=== PATIENT | female | born 1965 | race Caucasian/White ===

== ENCOUNTER 2017-11-06 13:26 | Emergency (ER) | payer OTHER ==
[2017-11-06 13:27] VITALS: BMI 31.5
[2017-11-06] MEDS ORDERED: Sodium Chloride 0.9% 1,000 ML IV STA (14:01)
--- NOTE | 2017-11-06 14:15 | ED PDOC ---
HPI: General Adult Time Seen by Provider: 11/06/17 13:36 Chief Complaint (Nursing): Flu-like Symptoms Chief Complaint (Provider): Flu-Like Symptoms History Per: Patient History/Exam Limitations: no limitations Onset/Duration Of Symptoms: Hrs (since last night) Current Symptoms Are (Timing): Still Present Additional Complaint(s): 51 year old female presents to ED with complaints of flu-like symptoms since last night and has a past medical history of asthma, diabetes mellitus, HTN, COPD, and hypothyroidism. (+) cough, congestion, fever, and body aches. Notes taking Theraflu with minimal relief. PCP: Reinaldo Rodas Past Medical History Reviewed: Historical Data, Nursing Documentation, Vital Signs Vital Signs: Last Vital Signs Temp 100 F H 11/06/17 14:35 Pulse 82 11/06/17 15:23 Resp 16 11/06/17 13:31 BP 147/89 11/06/17 13:31 Pulse Ox 100 11/06/17 15:23 - Medical History PMH: Anxiety, Asthma, Colonic Polyps, COPD (USES MAC), Gastritis, HTN, Hypercholesterolemia, Hypothyroidism, Sleep Apnea (USES MAC) Denies: Fractures, Chronic Kidney Disease, Seizures, TIA - Surgical History Surgical History: Appendectomy, Cholecystectomy, Endoscopy, Tonsillectomy - Family History Family History: States: Unknown Family Hx - Living Arrangements Living Arrangements: With Family - Home Medications Home Medications: Ambulatory Orders Medication Instructions Recorded Levothyroxine [Synthroid] 150 mcg PO DAILY 03/29/15 amLODIPine [Norvasc] 10 mg PO DAILY 03/29/15 Albuterol/Ipratropium [Combivent 2 inh PO BID 04/05/16 Respimat] Alprazolam 0.25 mg PO BID PRN 04/05/16 Cholecalciferol (Vitamin D3) 50,000 unit PO QWK 04/05/16 [Vitamin D3] Losartan Potassium 25 mg PO DAILY 04/05/16 Omeprazole 20 mg PO DAILY 04/05/16 Aspirin [Ecotrin] 81 mg PO DAILY #30 tablet. 01/20/17 Atorvastatin [Lipitor] 10 mg PO HS 08/29/17 Calcium Carbonate/Vitamin D3 1 tab PO BID 08/29/17 [Oysco 500-Vit D3 200 Tablet] Fluticasone Nasal [Flonase] 1 spry INH DAILY PRN 08/29/17 Fluticasone/Vilanterol [Breo 1 puff INH DAILY 08/29/17 Ellipta 100-25 Mcg INH] Mesalamine [Apriso] 0.375 gm PO DAILY 08/29/17 Benzonatate [Tessalon Perle] 100 mg PO Q8 PRN #30 capsule 11/06/17 Oseltamivir [Tamiflu] 75 mg PO BID #10 cap 11/06/17 - Allergies Allergies/Adverse Reactions: Allergies Allergy/AdvReac Type Severity Reaction Status Date / Time No Known Allergies Allergy Verified 08/29/17 11:02 Review of Systems ROS Statement: Except As Marked, All Systems Reviewed And Found Negative Constitutional: Positive for: Fever, Other ((+) body aches) ENT: Positive for: Nose Congestion Cardiovascular: Negative for: Chest Pain Respiratory: Positive for: Cough. Negative for: Shortness of Breath, Hemoptysis Gastrointestinal: Negative for: Nausea, Vomiting, Abdominal Pain Physical Exam - Reviewed Nursing Documentation Reviewed: Yes Vital Signs Reviewed: Yes - Physical Exam Appears: Positive for: Non-toxic, No Acute Distress Skin: Positive for: Normal Color, Warm, Dry Eye Exam: Positive for: Normal appearance, EOMI, PERRL ENT: Positive for: Normal ENT Inspection Neck: Positive for: Normal, Painless ROM, Supple Cardiovascular/Chest: Positive for: Regular Rate, Rhythm. Negative for: Murmur Respiratory: Positive for: Normal Breath Sounds. Negative for: Respiratory Distress Gastrointestinal/Abdominal: Positive for: Soft. Negative for: Tenderness Neurologic/Psych: Positive for: Alert, Oriented. Negative for: Motor/Sensory Deficits - Laboratory Results Result Diagrams: 11/06/17 14:30 11/06/17 14:30 - ECG ECG: Positive for: Interpreted By Me ECG Rhythm: Positive for: Sinus Rhythm. Negative for: ST/T Changes Rate: 82 O2 Sat by Pulse Oximetry: 100 (RA) Pulse Ox Interpretation: Normal - Radiology X-Ray: Interpreted by Me (CXR) X-Ray Interpretation: No Acute Disease Medical Decision Making Medical Decision Makin Initial impression: flu-like illness Initial plan: * VBG * Labs * CXR * NS IV * Acetaminophen 975mg PO * Zofran Inj 4mg IVP * BCx * Urine C&S * Re-eval Scribe Attestation: Documented by Ophelia Ballard, acting as a scribe for Jere Velasquez PA-C. Provider Scribe Attestation: All medical record entries made by the Scribe were at my direction and personally dictated by me. I have reviewed the chart and agree that the record accurately reflects my personal performance of the history, physical exam, medical decision making, and the department course for this patient. I have also personally directed, reviewed, and agree with the discharge instructions and disposition. Disposition - Clinical Impression Clinical Impression: Influenza-like symptoms - Patient ED Disposition Is Patient to be Admitted: No - Disposition Disposition: Routine/Home Disposition Time: 15:20 Condition: IMPROVED Prescriptions: Benzonatate [Tessalon Perle] 100 mg PO Q8 PRN #30 capsule PRN Reason: Cough Oseltamivir [Tamiflu] 75 mg PO BID #10 cap Instructions: Influenza (ED) Forms: [facility] (Setswana) Print Language: DIVEHI
[2017-11-06 15:01] LABS: BASO % 0.6 % (0.0-2.0); EOS % 0.4 % (0.0-4.0); HEMOGLOBIN 14.3 g/dL (12.0-16.0); LYMPH # 1.1 K/uL (1.0-4.3); LYMPH % 18.3 % (20.0-40.0); MEAN CELL VOLUME 86.5 fl (81.0-99.0); MEAN CORPUSCULAR HEMOGLOBIN 28.7 pg (27.0-31.0); MEAN CORPUSCULAR HGB CONC 33.2 g/dL (33.0-37.0); MEAN PLATELET VOLUME 8.8 fl (7.2-11.7); MONO # 0.6 K/uL (0.0-0.8); MONO % 9.5 % (0.0-10.0); NEUT # 4.2 K/uL (1.8-7.0); NEUT % 71.2 % (50.0-75.0); NRBC % 0.2 % (0.0-0.0); RED CELL DISTRIBUTION WIDTH 14.9 % (11.5-14.5); WHITE BLOOD COUNT 5.9 K/uL (4.8-10.8)
[2017-11-06 15:01] LABS: VENOUS BLOOD GAS BASE EXCESS 2.2 mmol/L (0.0-2.0); VENOUS BLOOD GAS PCO2 49 mmHg (40-60); VENOUS BLOOD GAS PO2 15 mm/Hg (30-55); VENOUS BLOOD PH 7.37 (7.32-7.43)
[2017-11-06 15:12] LABS: ALB/GLOB RATIO 1.3 (1.0-2.1); ALBUMIN 4.5 g/dL (3.5-5.0); ALT/SGPT 40 U/L (9-52); AST/SGOT 28 U/L (14-36); BLOOD UREA NITROGEN 13 mg/dl (7-17); CALCIUM 9.4 mg/dL (8.4-10.2); GFR AFRICAN-AMERICAN > 60; GFR NON-AFRICAN AMERICAN 52; SQUAMOUS EPITHIAL 12 /hpf (0-5); URINE BACTERIA RARE (<OCC); URINE BILIRUBIN NEGATIVE (NEGATIVE); URINE BLOOD SMALL (NEGATIVE); URINE CLARITY CLOUDY (Clear); URINE COLOR YELLOW (YELLOW); URINE GLUCOSE (UA) NEG (Normal); URINE LEUKOCYTE ESTERASE NEG Leu/uL (Negative); URINE NITRATE NEGATIVE (NEGATIVE); URINE PROTEIN 30 mg/dL (NEGATIVE); URINE UROBILINOGEN 0.2-1.0 mg/dL (0.2-1.0)
--- NOTE | 2017-11-06 15:34 | RAD ---
HISTORY: Cough COMPARISON: Comparison chest 03/18/2015 TECHNIQUE: Chest PA and lateral FINDINGS: LUNGS: Mild bibasilar atelectasis left greater than right. Developing left lower lobe infiltrate could be excluded followup radiographs. PLEURA: No significant pleural effusion identified. No pneumothorax apparent. CARDIOVASCULAR: Normal. OSSEOUS STRUCTURES: Mild multilevel degenerative spondylosis of the thoracic spine chronic anterior wedge deformities of few mid thoracic segments VISUALIZED UPPER ABDOMEN: Metallic clips right upper quadrant of the abdomen consistent with prior cholecystectomy. OTHER FINDINGS: None. IMPRESSION: Mild bibasilar atelectasis left greater than right. Developing left lower lobe infiltrate could be excluded followup radiographs.
[2017-11-06 16:05] VITALS: BP 117/66; PULSE 90; RESP 18; TEMP 99.1; O2SAT 95
--- NOTE | 2017-11-07 12:49 | CARD ---
APPROVED REPORT EKG Measurement Heart [id number] <Conclusion> Normal sinus rhythm Possible Left atrial enlargement Left axis deviation T wave abnormality, consider anterior ischemia Abnormal ECG
== END 2017-11-06 16:13 | disposition home or self-care (01) ==
LOC: H.ER 13:26
DX: J11.1 Influenza due to unidentified influenza virus with other respiratory manifestations (principal); E11.9 Type 2 diabetes mellitus without complications; I10 Essential (primary) hypertension; J44.9 Chronic obstructive pulmonary disease, unspecified; Z79.82 Long term (current) use of aspirin; E03.9 Hypothyroidism, unspecified; E78.00 Pure hypercholesterolemia, unspecified
CPT/HCPCS: 71046; 80053; 81003; 82803; 82948; 85025; 87040; 87086; 87804; 93005; 96361; 96374; 99282; J2405; J7040

== ENCOUNTER 2018-03-05 12:34 | Observation (INO) | payer OTHER ==
[2018-03-05 12:35] VITALS: BMI 31.5
[2018-03-05] MEDS ORDERED: Sodium Chloride 0.9% 1,000 ML IV STA (12:56)
--- NOTE | 2018-03-05 13:01 | ED PDOC ---
HPI: Abdomen Time Seen by Provider: 03/05/18 12:49 Chief Complaint (Nursing): Abdominal Pain Chief Complaint (Provider): Abdominal Pain History Per: Patient History/Exam Limitations: no limitations Onset/Duration Of Symptoms: Days (x2) Current Symptoms Are (Timing): Still Present Additional Complaint(s): 52 y/o female with a pmhx of colitis, HTN, thyroid disease, and hypercholesterolemia, who presents to the ED for evaluation of diffuse abdominal pain associated with nausea, diarrhea, and chills x2 days. Patient denies vomiting, fever, and hematochezia. PMD: Reinaldo Rodas Past Medical History Reviewed: Historical Data, Nursing Documentation, Vital Signs Vital Signs: Last Vital Signs Temp 98.7 F 03/05/18 12:45 Pulse 83 03/05/18 12:45 Resp 20 03/05/18 12:45 BP 128/92 H 03/05/18 12:45 Pulse Ox 99 03/05/18 13:04 - Medical History PMH: Anxiety, Asthma, Colonic Polyps, COPD (USES MAC), Gastritis, HTN, Hypercholesterolemia, Hypothyroidism, Sleep Apnea (USES MAC) Denies: Fractures, Chronic Kidney Disease, Seizures, TIA - Surgical History Surgical History: Appendectomy, Cholecystectomy, Endoscopy, Tonsillectomy - Family History Family History: States: Unknown Family Hx - Home Medications Home Medications: Ambulatory Orders Medication Instructions Recorded Levothyroxine [Synthroid] 150 mcg PO DAILY 03/29/15 amLODIPine [Norvasc] 10 mg PO DAILY 03/29/15 Albuterol/Ipratropium [Combivent 2 inh PO BID 04/05/16 Respimat] Alprazolam 0.25 mg PO BID PRN 04/05/16 Cholecalciferol (Vitamin D3) 50,000 unit PO QWK 04/05/16 [Vitamin D3] Losartan Potassium 25 mg PO DAILY 04/05/16 Omeprazole 20 mg PO DAILY 04/05/16 Aspirin [Ecotrin] 81 mg PO DAILY #30 tablet. 01/20/17 Atorvastatin [Lipitor] 10 mg PO HS 08/29/17 Calcium Carbonate/Vitamin D3 1 tab PO BID 08/29/17 [Oysco 500-Vit D3 200 Tablet] Fluticasone Nasal [Flonase] 1 spry INH DAILY PRN 08/29/17 Fluticasone/Vilanterol [Breo 1 puff INH DAILY 08/29/17 Ellipta 100-25 Mcg INH] Mesalamine [Apriso] 0.375 gm PO DAILY 08/29/17 Benzonatate [Tessalon Perle] 100 mg PO Q8 PRN #30 capsule 11/06/17 Oseltamivir [Tamiflu] 75 mg PO BID #10 cap 11/06/17 - Allergies Allergies/Adverse Reactions: Allergies Allergy/AdvReac Type Severity Reaction Status Date / Time No Known Allergies Allergy Verified 03/05/18 12:45 Review of Systems ROS Statement: Except As Marked, All Systems Reviewed And Found Negative Constitutional: Positive for: Chills. Negative for: Fever Gastrointestinal: Positive for: Nausea, Abdominal Pain, Diarrhea. Negative for : Vomiting, Hematochezia Physical Exam - Reviewed Nursing Documentation Reviewed: Yes Vital Signs Reviewed: Yes - Physical Exam Appears: Positive for: Non-toxic, No Acute Distress Head Exam: Positive for: ATRAUMATIC, NORMAL INSPECTION, NORMOCEPHALIC Skin: Positive for: Normal Color, Warm, Dry. Negative for: Rash Eye Exam: Positive for: EOMI, Normal appearance, PERRL ENT: Negative for: Normal ENT Inspection (mucous membranes dry) Neck: Positive for: Normal, Painless ROM Cardiovascular/Chest: Positive for: Regular Rate, Rhythm. Negative for: Murmur Respiratory: Positive for: Normal Breath Sounds. Negative for: Respiratory Distress Gastrointestinal/Abdominal: Positive for: Tenderness (RUQ, RLQ). Negative for: Guarding, Rebound Back: Positive for: Normal Inspection. Negative for: L CVA Tenderness, R CVA Tenderness, Vertebral Tenderness Extremity: Positive for: Normal ROM. Negative for: Pedal Edema, Deformity Neurologic/Psych: Positive for: Alert, Oriented. Negative for: Motor/Sensory Deficits - Laboratory Results Result Diagrams: 03/05/18 13:00 03/05/18 13:00 - ECG O2 Sat by Pulse Oximetry: 99 (RA) Pulse Ox Interpretation: Normal Medical Decision Making Medical Decision Making: Plan: --CT Abdomen and Pelvis w/ IV Contrat --CMP --Urine --Urine dipstick --CBC --Bentyl 10mg PO --1LNS 150mls/hr --Zofran 4mg PO --Reevaluation Scribe Attestation: Documented by Nish Banks, acting as a scribe for Ladarius Gill MD. Provider Scribe Attestation: All medical record entries made by the Scribe were at my direction and personally dictated by me. I have reviewed the chart and agree that the record accurately reflects my personal performance of the history, physical exam, medical decision making, and the department course for this patient. I have also personally directed, reviewed, and agree with the discharge instructions and disposition. Disposition - Clinical Impression Clinical Impression: Abdominal pain - Patient ED Disposition Is Patient to be Admitted: Transfer of Care - Disposition Disposition: Transfer of Care Disposition Time: 14:59 Condition: FAIR Forms: [facility] (Turkmen) Patient Signed Over To: Petra Yadav
[2018-03-05 13:40] LABS: ALB/GLOB RATIO 1.1 (1.0-2.1); ALBUMIN 3.7 g/dL (3.5-5.0); ALT/SGPT 41 U/L (9-52); AST/SGOT 20 U/L (14-36); BLOOD UREA NITROGEN 11 mg/dl (7-17); CALCIUM 9.2 mg/dL (8.4-10.2); GFR AFRICAN-AMERICAN > 60; GFR NON-AFRICAN AMERICAN > 60
[2018-03-05 13:42] LABS: BASO % 0.4 % (0.0-2.0); EOS % 0.4 % (0.0-4.0); HEMOGLOBIN 13.8 g/dL (12.0-16.0); LYMPH # 1.9 K/uL (1.0-4.3); LYMPH % 17.3 % (20.0-40.0); MEAN CELL VOLUME 86.5 fl (81.0-99.0); MEAN CORPUSCULAR HEMOGLOBIN 29.6 pg (27.0-31.0); MEAN CORPUSCULAR HGB CONC 34.3 g/dL (33.0-37.0); MEAN PLATELET VOLUME 8.8 fl (7.2-11.7); MONO # 0.6 K/uL (0.0-0.8); MONO % 5.9 % (0.0-10.0); NEUT # 8.2 K/uL (1.8-7.0); NRBC % 0.1 % (0.0-0.0); RBC 4.67 Mil/uL (3.80-5.20); RED CELL DISTRIBUTION WIDTH 14.6 % (11.5-14.5); WHITE BLOOD COUNT 10.8 K/uL (4.8-10.8)
--- NOTE | 2018-03-05 15:17 | ED PDOC ---
- Laboratory Results Result Diagrams: 03/05/18 13:00 03/05/18 13:00 - ECG O2 Sat by Pulse Oximetry: 99 (RA) Medical Decision Making Medical Decision Makin:00 Patient endorsed to me by Dr. Gill pending CT. Accession No. : [id number] Patient Name / ID : JULIO CESAR BLEDSOE / [id number] Exam Date : 03/05/2018 15:30:27 ( Approved ) Study Comment : Sex / Age : F / 52Y Creator : Melissa Almanza MD Dictator : Melissa Almanza MD Electrical Instrument Repairer : [employer] Test Engineer : Melissa Almanza MD Approver2 : Report Date : 03/05/2018 16:26:00 My Comment : PROCEDURE: CT Abdomen and Pelvis with contrast HISTORY: Abdominal pain COMPARISON: 01/16/2016. TECHNIQUE: CT scan of the abdomen and pelvis was performed after administration of intravenous contrast. Oral contrast was not administered. Coronal and sagittal reformatted images were obtained. Contrast dose: 90 mL Omnipaque Radiation dose: Total exam DLP = 600.32 mGy-cm. This CT exam was performed using one or more of the following dose reduction techniques: Automated exposure control, adjustment of the mA and/or kV according to patient size, and/or use of iterative reconstruction technique. FINDINGS: LOWER THORAX: The visualized right lung is clear. There is linear atelectasis/scarring in the left lower lobe. LIVER: The liver is normal in size and there is diffuse fatty infiltration. No gross lesion or ductal dilatation. GALLBLADDER AND BILE DUCTS: Surgically absent. PANCREAS: Normal in size with homogeneous enhancement. No gross lesion or ductal dilatation. SPLEEN: Normal in size and appearance. ADRENALS: No discrete nodule. KIDNEYS AND URETERS: Both kidneys are normal in size and there is homogeneous enhancement. No hydronephrosis. No solid mass. VASCULATURE: Atherosclerotic aortoiliac calcifications. No aortic aneurysm. BOWEL: The small bowel loops are normal in caliber. There is apparent moderate segmental mural thickening and mucosal enhancement and submucosal edema diffusely involving the colon with mild pericolonic inflammatory changes. No bowel dilatation or obstruction. APPENDIX: Surgically absent. PERITONEUM: No free fluid. No free air. LYMPH NODES: No enlarged lymph nodes. BLADDER: Grossly normal in appearance. REPRODUCTIVE: The uterus is normal in size. BONES: No acute fracture. There is diffuse bone demineralization and multilevel degenerative changes in the spine. OTHER FINDINGS: None. IMPRESSION: Findings are most compatible with nonspecific infectious/ inflammatory pancolitis. No bowel obstruction. Scribe Attestation: Documented by Nish Banks, acting as a scribe for Petra Yadav MD. Provider Scribe Attestation: All medical record entries made by the Scribe were at my direction and personally dictated by me. I have reviewed the chart and agree that the record accurately reflects my personal performance of the history, physical exam, medical decision making, and the department course for this patient. I have also personally directed, reviewed, and agree with the discharge instructions and disposition. Disposition - Clinical Impression Clinical Impression: Pancolitis - POA Present On Arrival: None - Disposition Disposition: Hospitalized as Observation Patient Disposition Time: 16:46 Condition: STABLE
[2018-03-05] MEDS ORDERED: Iohexol 300 100 ML IJ ONE (15:21)
[2018-03-05] MEDS ORDERED: Sodium Chloride 0.9% 50 ML IV ONE (15:21)
--- NOTE | 2018-03-05 16:27 | CT ---
PROCEDURE: CT Abdomen and Pelvis with contrast HISTORY: Abdominal pain COMPARISON: 01/16/2016. TECHNIQUE: CT scan of the abdomen and pelvis was performed after administration of intravenous contrast. Oral contrast was not administered. Coronal and sagittal reformatted images were obtained. Contrast dose: 90 mL Omnipaque Radiation dose: Total exam DLP = 600.32 mGy-cm. This CT exam was performed using one or more of the following dose reduction techniques: Automated exposure control, adjustment of the mA and/or kV according to patient size, and/or use of iterative reconstruction technique. FINDINGS: LOWER THORAX: The visualized right lung is clear. There is linear atelectasis/scarring in the left lower lobe. LIVER: The liver is normal in size and there is diffuse fatty infiltration. No gross lesion or ductal dilatation. GALLBLADDER AND BILE DUCTS: Surgically absent. PANCREAS: Normal in size with homogeneous enhancement. No gross lesion or ductal dilatation. SPLEEN: Normal in size and appearance. ADRENALS: No discrete nodule. KIDNEYS AND URETERS: Both kidneys are normal in size and there is homogeneous enhancement. No hydronephrosis. No solid mass. VASCULATURE: Atherosclerotic aortoiliac calcifications. No aortic aneurysm. BOWEL: The small bowel loops are normal in caliber. There is apparent moderate segmental mural thickening and mucosal enhancement and submucosal edema diffusely involving the colon with mild pericolonic inflammatory changes. No bowel dilatation or obstruction. APPENDIX: Surgically absent. PERITONEUM: No free fluid. No free air. LYMPH NODES: No enlarged lymph nodes. BLADDER: Grossly normal in appearance. REPRODUCTIVE: The uterus is normal in size. BONES: No acute fracture. There is diffuse bone demineralization and multilevel degenerative changes in the spine. OTHER FINDINGS: None. IMPRESSION: Findings are most compatible with nonspecific infectious/ inflammatory pancolitis. No bowel obstruction.
[2018-03-05] MEDS ORDERED: metroNIDAZOLE 500mg/100ml NS 100 ML IV STA (16:42)
[2018-03-05] MEDS ORDERED: Ciprofloxacin 400mg/200ml D5W 400 MG/200 ML BAG IV STA (16:42)
[2018-03-05] MEDS ORDERED: metroNIDAZOLE 500mg/100ml NS 100 ML IVPB ONE (16:54)
--- NOTE | 2018-03-05 17:38 | CP.PCM.HP ---
History of Present Illness - History of Present Illness History of Present Illness: CC: diarrhea and stomach pain HPI: 52 year old female PMH HTN, HLD, asthma/COPD?, smoker, anxiety, hypothyroid , presents with a 6 day history of constant diarrhea, worsening from paste like to watery. Pt admits "to some red and then black" diarrhea the past couple days. H/H is stable, however she complains of some associated weakness and fatigue. Electrolytes normal. HD stable, no WBC, afebrile. Observe overnight for worsening symptoms, monitor H/H and electrolytes. CT Abd Pel + pancolitis. Will initiate Cipro and Flagyl, Zofran for nausea. ROS: per HPI all other systems reviewed and negative PMSH: HTN, HLD, asthma/COPD?, smoker, anxiety, hypothyroid, cholecystectomy SH: 1-2 cigarettes daily for appx 40 years, denies ETOH, IVDU FH: CAD: mother of [place] @ 68, sister of [place] @54, father of [place] @ 83; siblings with diabetes Meds: as below Allergies: NKDA Present on Admission - Present on Admission Any Indicators Present on Admission: No Past Patient History - Infectious Disease Hx of Infectious Diseases: None - Past Medical History & Family History Past Medical History?: Yes - Past Social History Smoking Status: Light Smoker < 10 Cigarettes Daily - CARDIAC Hx Cardiac Disorders: Yes - PULMONARY Hx Respiratory Disorders: Yes - NEUROLOGICAL Hx Neurological Disorder: No - HEENT Hx HEENT Problems: No - RENAL Hx Chronic Kidney Disease: No - ENDOCRINE/METABOLIC Hx Hypothyroidism: Yes - HEMATOLOGICAL/ONCOLOGICAL Hx Blood Disorders: No Hx Blood Transfusions: No - INTEGUMENTARY Hx Dermatological Problems: No - MUSCULOSKELETAL/RHEUMATOLOGICAL Hx Fractures: No - GASTROINTESTINAL Hx Gastritis: Yes - GENITOURINARY/GYNECOLOGICAL Hx Genitourinary Disorders: No - PSYCHIATRIC Hx Psychophysiologic Disorder: Yes - SURGICAL HISTORY Hx Appendectomy: Yes Hx Cholecystectomy: Yes Hx Tonsillectomy: Yes - ANESTHESIA Hx Anesthesia: Yes Hx Anesthesia Reactions: No Hx Malignant Hyperthermia: No Meds Allergies/Adverse Reactions: Allergies Allergy/AdvReac Type Severity Reaction Status Date / Time No Known Allergies Allergy Verified 03/05/18 12:45 Physical Exam - Constitutional Appears: Non-toxic, No Acute Distress - Head Exam Head Exam: ATRAUMATIC, NORMOCEPHALIC - Eye Exam Eye Exam: EOMI, Normal appearance, PERRL - ENT Exam ENT Exam: Mucous Membranes Moist, Normal Oropharynx - Respiratory Exam Respiratory Exam: Clear to Auscultation Bilateral, NORMAL BREATHING PATTERN. absent: Rhonchi, Wheezes - Cardiovascular Exam Cardiovascular Exam: RRR, +S1, +S2 - GI/Abdominal Exam GI & Abdominal Exam: Normal Bowel Sounds, Soft, Tenderness (GENERALIZED). absent: Guarding, Mass, Rigid - Extremities Exam Extremities exam: Positive for: normal capillary refill, pedal pulses present - Back Exam Back exam: absent: CVA tenderness (L), CVA tenderness (R) - Neurological Exam Neurological exam: Alert, Oriented x3 - Psychiatric Exam Psychiatric exam: Normal Affect, Normal Mood - Skin Skin Exam: Dry, Warm Results - Vital Signs Recent Vital Signs: Last Vital Signs Temp 98.6 F 03/05/18 17:28 Pulse 77 03/05/18 17:28 Resp 18 03/05/18 17:28 BP 134/80 03/05/18 17:28 Pulse Ox 99 03/05/18 17:28 - Labs Result Diagrams: 03/05/18 13:00 03/05/18 13:00 Labs: Laboratory Results - last 24 hr 03/05/18 03/05/18 13:00 13:00 WBC 10.8 D RBC 4.67 Hgb 13.8 Hct 40.4 MCV 86.5 MCH 29.6 MCHC 34.3 RDW 14.6 H Plt Count 251 MPV 8.8 Neut % (Auto) 76.0 H Lymph % (Auto) 17.3 L Harper % (Auto) 5.9 Eos % (Auto) 0.4 Baso % (Auto) 0.4 Neut # (Auto) 8.2 H Lymph # (Auto) 1.9 Harper # (Auto) 0.6 Eos # (Auto) 0.0 Baso # (Auto) 0.0 Sodium 142 Potassium 3.8 Chloride 103 Carbon Dioxide 27 Anion Gap 16 BUN 11 Creatinine 0.9 Est GFR ( Amer) > 60 Est GFR (Non-Af Amer) > 60 Random Glucose 97 Calcium 9.2 Total Bilirubin 0.6 AST 20 ALT 41 Alkaline Phosphatase 69 Total Protein 7.2 Albumin 3.7 Globulin 3.5 Albumin/Globulin Ratio 1.1 Assessment & Plan - Assessment and Plan (Free Text) Plan: 52 year old female PMH HTN, HLD, asthma/COPD?, smoker, anxiety, hypothyroid, presents with a 6 day history of constant diarrhea, worsening from paste like to watery. Pt admits "to some red and then black" diarrhea the past couple days. H/H is stable, however she complains of some associated weakness and fatigue. Electrolytes normal. HD stable, no WBC, afebrile. Observe overnight for worsening symptoms, monitor H/H and electrolytes. CT Abd Pel + pancolitis. Will initiate Cipro and Flagyl, Zofran for nausea. Note: pt hx: normal cath January 2017 Pancolitis - 6 days diarrhea and pain, no fever, no WBC, + weakness - normal renal function - CT abd: Pancolitis - Cipro / Flagyl IV initiated - pain: Tylenol 975 mg Q8 PRN - pt on Mesalamine at home, continue - continue Omeprazole Melena - monitor for worsening sx - stable H/H from baseline HTN - continue Amlodipine, Losartan HLD - continue Lipitor Asthma/COPD - cont Advair, Duonebs as necessary Osteoporosis/penia? - continue Calcium/Vit D Anxiety - cont Xanax Hypothyroid - cont Synthroid VTE: SCDs, reported melena
[2018-03-05] MEDS ORDERED: Ergocalciferol 50,000 Intl Units Cap PO SCH (17:45)
[2018-03-05] MEDS ORDERED: Ciprofloxacin 400mg/200ml D5W 400 MG/200 ML BAG IVPB ONE (17:59)
[2018-03-05] MEDS ORDERED: Albuterol-Ipratrop 3 mg / 0.5 (3 ml) UD INH PRN (18:07)
[2018-03-05] MEDS: Oxycodone/Acetaminophen 5/325 mg Tab PO PRN (20:36)
[2018-03-06 00:17] VITALS: O2SAT 95
[2018-03-06] MEDS: metroNIDAZOLE 500mg/100ml NS 100 ML IVPB SCH ×2 (01:51→09:35)
[2018-03-06] MEDS ORDERED: Ciprofloxacin 400mg/200ml D5W 400 MG/200 ML BAG IVPB SCH (06:00)
[2018-03-06 06:26] LABS: HEMOGLOBIN 12.6 g/dL (12.0-16.0); MEAN CELL VOLUME 87.3 fl (81.0-99.0); MEAN CORPUSCULAR HEMOGLOBIN 29.4 pg (27.0-31.0); MEAN CORPUSCULAR HGB CONC 33.7 g/dL (33.0-37.0); RBC 4.3 Mil/uL (3.80-5.20); RED CELL DISTRIBUTION WIDTH 15.1 % (11.5-14.5)
[2018-03-06] MEDS ORDERED: Levothyroxine 150 MCG TAB PO SCH (06:30)
[2018-03-06 06:49] LABS: BLOOD UREA NITROGEN 6 mg/dl (7-17)
[2018-03-06 06:50] LABS: GFR AFRICAN-AMERICAN > 60; GFR NON-AFRICAN AMERICAN > 60
[2018-03-06 08:37] VITALS: BP 119/86; PULSE 67; RESP 20; TEMP 97.9
[2018-03-06] MEDS: Oxycodone/Acetaminophen 5/325 mg Tab PO PRN (08:39)
[2018-03-06] MEDS ORDERED: Pantoprazole 20 mg EC Tab PO SCH (09:00)
[2018-03-06] MEDS ORDERED: Patient's Own Med (Budesonide/Formoterol Fumarate [Symbicort 160-4.5 Mcg Inhaler] 1 PUFF) PO SCH (09:00)
[2018-03-06] MEDS ORDERED: MESALAMINE 0.375 GM PO SCH (09:00)
[2018-03-06] MEDS ORDERED: Fluticasone-Salmeterol 100-50mcg Diskus INH SCH (09:00)
[2018-03-06] MEDS ORDERED: Calcium-Vit D 500 mg-200 Units Tab UD PO SCH (09:00)
--- NOTE | 2018-03-06 10:38 | CP.PCM.DIS ---
Provider - Provider Date of Admission: 03/05/18 16:46 Attending physician: Chris Nichols DO Primary care physician: Reinaldo Rodas MD Time Spent in preparation of Discharge (in minutes): 30 Hospital Course - Lab Results Lab Results: Most Recent Lab Values WBC 9.0 K/uL (4.8-10.8) 03/06/18 06:00 RBC 4.30 Mil/uL (3.80-5.20) 03/06/18 06:00 Hgb 12.6 g/dL (12.0-16.0) 03/06/18 06:00 Hct 37.6 % (34.0-47.0) 03/06/18 06:00 MCV 87.3 fl (81.0-99.0) 03/06/18 06:00 MCH 29.4 pg (27.0-31.0) 03/06/18 06:00 MCHC 33.7 g/dL (33.0-37.0) 03/06/18 06:00 RDW 15.1 % (11.5-14.5) H 03/06/18 06:00 Plt Count 228 K/uL (130-400) 03/06/18 06:00 MPV 8.8 fl (7.2-11.7) 03/05/18 13:00 Neut % (Auto) 76.0 % (50.0-75.0) H 03/05/18 13:00 Lymph % (Auto) 17.3 % (20.0-40.0) L 03/05/18 13:00 [place] % (Auto) 5.9 % (0.0-10.0) 03/05/18 13:00 Eos % (Auto) 0.4 % (0.0-4.0) 03/05/18 13:00 Baso % (Auto) 0.4 % (0.0-2.0) 03/05/18 13:00 Neut # (Auto) 8.2 K/uL (1.8-7.0) H 03/05/18 13:00 Lymph # (Auto) 1.9 K/uL (1.0-4.3) 03/05/18 13:00 [place] # (Auto) 0.6 K/uL (0.0-0.8) 03/05/18 13:00 Eos # (Auto) 0.0 K/uL (0.0-0.7) 03/05/18 13:00 Baso # (Auto) 0.0 K/uL (0.0-0.2) 03/05/18 13:00 Sodium 141 mmol/l (132-148) 03/06/18 06:00 Potassium 3.4 MMOL/L (3.6-5.0) L 03/06/18 06:00 Chloride 105 mmol/L (98-107) 03/06/18 06:00 Carbon Dioxide 25 mmol/L (22-30) 03/06/18 06:00 Anion Gap 14 (10-20) 03/06/18 06:00 BUN 6 mg/dl (7-17) L 03/06/18 06:00 Creatinine 0.7 mg/dl (0.7-1.2) 03/06/18 06:00 Est GFR ( Amer) > 60 03/06/18 06:00 Est GFR (Non-Af Amer) > 60 03/06/18 06:00 Random Glucose 90 mg/dL (65-105) 03/06/18 06:00 Calcium 8.0 mg/dL (8.4-10.2) L 03/06/18 06:00 Total Bilirubin 0.6 mg/dl (0.2-1.3) 03/05/18 13:00 AST 20 U/L (14-36) 03/05/18 13:00 ALT 41 U/L (9-52) 03/05/18 13:00 Alkaline Phosphatase 69 U/L (38-126) 03/05/18 13:00 Total Protein 7.2 G/DL (6.3-8.2) 03/05/18 13:00 Albumin 3.7 g/dL (3.5-5.0) 03/05/18 13:00 Globulin 3.5 gm/dL (2.2-3.9) 03/05/18 13:00 Albumin/Globulin Ratio 1.1 (1.0-2.1) 03/05/18 13:00 - Hospital Course Hospital Course: 52 year old female PMH HTN, HLD, asthma/COPD?, smoker, anxiety, hypothyroid, presents with a 6 day history of constant diarrhea, worsening from paste like to watery. Pt admits "to some red and then black" diarrhea the past couple days. H/H is stable, however she complains of some associated weakness and fatigue. Electrolytes normal. HD stable, no WBC, afebrile. Observe overnight for worsening symptoms, monitor H/H and electrolytes. CT Abd Pel + pancolitis. Will initiate Cipro and Flagyl, Zofran for nausea. Note: pt hx: normal cath January 2017 Patient doing well this morning, tolerating PO without difficulty. Normal BM, stable H/H. No Azotemia. Patient to follow up with GI in one week, has colonoscopy planned for March. Pt to also follow up with PCP in one week. Stable to be d/c home with PO abx. Pancolitis - 6 days diarrhea and pain, no fever, no WBC, + weakness - normal renal function - CT abd: Pancolitis - Cipro / Flagyl IV initiated - pain: Tylenol 975 mg Q8 PRN - pt on Mesalamine at home, continue - continue Omeprazole Melena - monitor for worsening sx - stable H/H from baseline HTN - continue Amlodipine, Losartan HLD - continue Lipitor Asthma/COPD - cont Advair, Duonebs as necessary Osteoporosis/penia? - continue Calcium/Vit D Anxiety - cont Xanax Hypothyroid - cont Synthroid VTE: SCDs, reported melena Discharge Exam - Head Exam Additional comments: GENERAL APPEARANCE: Well developed, well nourished, alert and cooperative, and appears to be in no acute distress. HEENT: normocephalic, atraumatic PERRL, EOMI. Vision is grossly intact NECK: Neck supple, non-tender without lymphadenopathy, masses or thyromegaly. CARDIAC: Normal S1 and S2. No S3, S4 or murmurs. Rhythm is regular. LUNGS: Clear to auscultation and percussion without rales, rhonchi, wheezing or diminished breath sounds. ABDOMEN: Positive bowel sounds. Soft, nondistended, nontender. No guarding or rebound. No masses. BACK: Examination of the spine reveals no spinal deformity, symmetry of spinal muscles, EXTREMITIES: No significant deformity or joint abnormality. No edema. NEUROLOGICAL: Strength and sensation symmetric and intact throughout. Reflexes 2 + throughout. SKIN: Skin normal color, texture and turgor with no lesions or eruptions. PSYCHIATRIC: The patient was oriented to person, place, and time. Normal affect. Discharge Plan - Discharge Medications Prescriptions: amLODIPine [Norvasc] 10 mg PO DAILY #30 tab Atorvastatin [Lipitor] 10 mg PO HS #30 tab Calcium Carbonate/Vitamin D3 [[place] 500-Vit D3 200 Tablet] 1 tab PO BID #60 tablet Ciprofloxacin HCl [Cipro] 500 mg PO Q12 #20 tablet Fluticasone/Vilanterol [Breo Ellipta 100-25 Mcg INH] 1 puff INH DAILY #1 blst.w.dev Levothyroxine [Synthroid] 150 mcg PO DAILY #30 tab Mesalamine [Apriso] 0.375 gm PO DAILY #30 cap.er.24h metroNIDAZOLE [Flagyl] 500 mg PO Q8 #30 tab - Follow Up Plan Condition: STABLE Disposition: HOME/ ROUTINE Instructions: Ulcerative Colitis in Adults Additional Instructions: Please call DR. KEILY THOMPSON, GASTROENTEROLOGY FOR APPOINTMENT TOMORROW. Follow up PCP in one week. Referrals: Reinaldo Rodas MD [Primary Care Provider] -
== END 2018-03-06 13:46 | disposition home or self-care (01) ==
LOC: H.ER 12:34 → INTOOBSV 16:46 → H.ERHOLD 16:46 → H.MEDSURG1 18:18
PROVIDERS: ADMIT Internal Medicine; ATTEND Internal Medicine
DX: K51.00 Ulcerative (chronic) pancolitis without complications (principal); K92.1 Melena; I10 Essential (primary) hypertension; E78.00 Pure hypercholesterolemia, unspecified; J44.9 Chronic obstructive pulmonary disease, unspecified; K29.70 Gastritis, unspecified, without bleeding; F17.210 Nicotine dependence, cigarettes, uncomplicated; E03.9 Hypothyroidism, unspecified; G47.30 Sleep apnea, unspecified; E78.5 Hyperlipidemia, unspecified; F41.9 Anxiety disorder, unspecified
CPT/HCPCS: 36415; 74177; 80048; 80053; 81025; 85025; 85027; 96360; 99285; G0378; J0744; J7040; Q9967

== ENCOUNTER 2018-03-13 11:35 | Emergency (ER) | payer OTHER ==
[2018-03-13 11:38] VITALS: BMI 30.5
[2018-03-13 11:40] VITALS: O2SAT 98
--- NOTE | 2018-03-13 12:45 | ED PDOC ---
HPI: Abdomen Time Seen by Provider: 03/13/18 11:40 Chief Complaint (Nursing): Abdominal Pain Chief Complaint (Provider): Abdominal Pain History Per: Patient History/Exam Limitations: no limitations Onset/Duration Of Symptoms: Days (x1) Current Symptoms Are (Timing): Still Present Additional Complaint(s): 52 year old female presents to the emergency department complaining of diffuse abdominal pain and diarrhea onset today. On 03/06/18 patient was admitted for colitis. Patient denies fever and vomiting. PMD: Reinaldo Rodas Past Medical History Reviewed: Historical Data, Nursing Documentation, Vital Signs Vital Signs: Last Vital Signs Temp 97.9 F 03/13/18 15:53 Pulse 64 03/13/18 15:53 Resp 16 03/13/18 15:53 BP 105/62 03/13/18 15:53 Pulse Ox 98 03/13/18 15:55 - Medical History PMH: Anxiety, Asthma, Bronchitis, Colonic Polyps, COPD (USES MAC), Gastritis, HTN, Hypercholesterolemia, Hypothyroidism, Sleep Apnea (USES MAC) Denies: Fractures, Chronic Kidney Disease, Seizures, TIA - Surgical History Surgical History: Appendectomy, Cholecystectomy, Endoscopy, Tonsillectomy - Family History Family History: States: Unknown Family Hx - Social History Current smoker - smoking cessation education provided: Yes (1/2 pack per day) Alcohol: Social Drugs: Denies - Home Medications Home Medications: Ambulatory Orders Medication Instructions Recorded Albuterol/Ipratropium [Combivent 2 inh PO BID 04/05/16 Respimat] Alprazolam 0.25 mg PO BID PRN 04/05/16 Cholecalciferol (Vitamin D3) 50,000 unit PO QWK 04/05/16 [Vitamin D3] Losartan Potassium 25 mg PO DAILY 04/05/16 Omeprazole 20 mg PO DAILY 04/05/16 Aspirin [Ecotrin] 81 mg PO DAILY #30 tablet. 01/20/17 Fluticasone Nasal [Flonase] 1 spry INH DAILY PRN 08/29/17 Atorvastatin [Lipitor] 10 mg PO HS #30 tab 03/06/18 Calcium Carbonate/Vitamin D3 1 tab PO BID #60 tablet 03/06/18 [[place] 500-Vit D3 200 Tablet] Ciprofloxacin HCl [Cipro] 500 mg PO Q12 #20 tablet 03/06/18 Fluticasone/Vilanterol [Breo 1 puff INH DAILY #1 blst.w.dev 03/06/18 Ellipta 100-25 Mcg INH] Levothyroxine [Synthroid] 150 mcg PO DAILY #30 tab 03/06/18 Mesalamine [Apriso] 0.375 gm PO DAILY #30 cap.er.24h 03/06/18 amLODIPine [Norvasc] 10 mg PO DAILY #30 tab 03/06/18 metroNIDAZOLE [Flagyl] 500 mg PO Q8 #30 tab 03/06/18 - Allergies Allergies/Adverse Reactions: Allergies Allergy/AdvReac Type Severity Reaction Status Date / Time No Known Allergies Allergy Verified 03/05/18 12:45 Review of Systems ROS Statement: Except As Marked, All Systems Reviewed And Found Negative Constitutional: Negative for: Fever Gastrointestinal: Positive for: Abdominal Pain (diffuse), Diarrhea. Negative for: Vomiting Physical Exam - Reviewed Nursing Documentation Reviewed: Yes Vital Signs Reviewed: Yes - Physical Exam Appears: Positive for: No Acute Distress Head Exam: Positive for: ATRAUMATIC, NORMOCEPHALIC Skin: Positive for: Normal Color, Warm, Dry Eye Exam: Positive for: Normal appearance Neck: Positive for: Normal Cardiovascular/Chest: Positive for: Regular Rate, Rhythm. Negative for: Murmur Respiratory: Positive for: Normal Breath Sounds. Negative for: Accessory Muscle Use, Respiratory Distress Gastrointestinal/Abdominal: Positive for: Tenderness (diffuse) Back: Positive for: Normal Inspection Extremity: Positive for: Normal ROM Neurologic/Psych: Positive for: Alert (and awake), Oriented (x3) - Laboratory Results Result Diagrams: 03/13/18 12:59 03/13/18 12:59 - ECG O2 Sat by Pulse Oximetry: 98 (RA) Pulse Ox Interpretation: Normal Medical Decision Making Medical Decision Making: Initial Impression: abdominal pain Time: 12:47 Initial Plan: --CMP --CBC with differential --Morphine 4mg IV --Sodium Chloride 0.9% 1000ml IV 15:45 At this time, patient is tolerating PO. Patient's labs and vital signs were all normal, and she was made aware of this. She had a colonoscopy planned as an outpatient with Dr. Guillory of GI for further evaluation. instructed patient that if symptoms worsen or dont improve return to the ED immediately. Scribe Attestation: Documented by Sandra Alcocer, acting as a scribe for Harleen Izaguirre MD Provider Scribe Attestation: All medical entries made by the Scribe were at my direction and personally dictated by me. I have reviewed the chart and agree that the record accurately reflects my personal performance of the history, physical exam, medical decision making, and the department course for this patient. I have also personally directed, reviewed, and agree with the discharge instructions and disposition. Disposition - Clinical Impression Clinical Impression: Colitis - Patient ED Disposition Is Patient to be Admitted: No Counseled Patient/Family Regarding: Studies Performed, Diagnosis, Need For Followup - Disposition Referrals: [facility] [Outside] [facility] [Outside] Disposition: Routine/Home Disposition Time: 14:00 Condition: IMPROVED Additional Instructions: follow up with the GI doctor Dr Guillory as previously recommended return to the ED with any worsening or concerning symptoms Instructions: Diarrhea in Adolescents and Adults Forms: [employer] (Honduran)
[2018-03-13] MEDS ORDERED: Sodium Chloride 0.9% 1,000 ML IV STA (12:47)
[2018-03-13] MEDS ORDERED: Morphine 4 MG/ML VIAL ONE (12:51)
[2018-03-13 13:10] LABS: BASO % 0.5 % (0.0-2.0); EOS # 0.1 K/uL (0.0-0.7); EOS % 0.8 % (0.0-4.0); HEMOGLOBIN 14.3 g/dL (12.0-16.0); MEAN CELL VOLUME 86.3 fl (81.0-99.0); MEAN CORPUSCULAR HEMOGLOBIN 29.3 pg (27.0-31.0); MEAN CORPUSCULAR HGB CONC 33.9 g/dL (33.0-37.0); MEAN PLATELET VOLUME 7.9 fl (7.2-11.7); MONO # 0.6 K/uL (0.0-0.8); MONO % 5.7 % (0.0-10.0); NEUT # 7.4 K/uL (1.8-7.0); NRBC % 0.1 % (0.0-0.0); RBC 4.89 Mil/uL (3.80-5.20); RED CELL DISTRIBUTION WIDTH 14.9 % (11.5-14.5); WHITE BLOOD COUNT 10.1 K/uL (4.8-10.8)
[2018-03-13 13:29] LABS: ALBUMIN 3.7 g/dL (3.5-5.0); BLOOD UREA NITROGEN 7 mg/dl (7-17); CALCIUM 9.7 mg/dL (8.4-10.2); GFR AFRICAN-AMERICAN > 60; GFR NON-AFRICAN AMERICAN > 60
[2018-03-13 13:30] LABS: ALT/SGPT 26 U/L (9-52); AST/SGOT 25 U/L (14-36)
[2018-03-13 15:54] VITALS: BP 105/62; PULSE 64; RESP 16; TEMP 97.9
== END 2018-03-13 15:53 | disposition home or self-care (01) ==
LOC: H.ER 11:35
DX: K52.9 Noninfective gastroenteritis and colitis, unspecified (principal); F17.210 Nicotine dependence, cigarettes, uncomplicated; I10 Essential (primary) hypertension; Z79.82 Long term (current) use of aspirin; J44.9 Chronic obstructive pulmonary disease, unspecified
CPT/HCPCS: 80053; 85025; 96360; 99285; J1885; J2270; J7030

== ENCOUNTER 2018-10-13 15:33 | Emergency (ER) | payer OTHER ==
[2018-10-13 15:34] VITALS: BMI 30.5
[2018-10-13] MEDS ORDERED: Sodium Chloride 0.9% 1,000 ML IV ONE ×2 (18:33→21:42)
--- NOTE | 2018-10-13 19:02 | ED PDOC ---
HPI: Influenza Time Seen by Provider: 10/13/18 18:09 Chief Complaint: Fever Chief Complaint (Provider): flu-like symptoms History Per: Patient Exam Limitations: no limitations Onset/Duration Of Symptoms: Days (2x days) Symptoms include: fever, headache (global, described as throbbing), bodyaches, sore throat, vomiting (2x episodes of non-bilious, non-bloody vomiting. ), other (dizziness) Additional complaint(s):: 52 year old female with a past medical history of hypertension and hypercholesterolemia presents to the ED for an evaluation of a fever (tmax 100.8 F), throat pain, headaches (global, described as throbbing), dizziness, bodyaches, dry cough, and 2x episodes of non-bilious non-bloody vomiting that started yesterday morning. Patient denies taking medications prior to arrival and reports that she has a sick contact (daughter). Otherwise: (-) diarrhea, (-) abdominal pain, (-) chest pain, (-) photophobia, (-) numbness, (-) weakness, (-) visual changes, (-) urinary symptoms, (-) rashes. PMD: Reinaldo Rodas MD Past Medical History Reviewed: Historical Data, Nursing Documentation, Vital Signs Vital Signs: Last Vital Signs Temp 98 F 10/13/18 16:06 Pulse 114 H 10/13/18 16:06 Resp 20 10/13/18 16:06 BP 106/77 10/13/18 16:06 Pulse Ox 98 10/13/18 16:06 HERVE Report Viewed: Yes - Medical History PMH: Anxiety, Asthma, Bronchitis, Colonic Polyps, COPD (USES MAC), Gastritis, HTN, Hypercholesterolemia, Hypothyroidism, Sleep Apnea (USES MAC) Other PMH: colitis - Surgical History Surgical History: Appendectomy, Cholecystectomy, Endoscopy, Tonsillectomy, C- Section Other surgeries: tubal ligation - Family History Family History: States: No Known Family Hx - Social History Current smoker - smoking cessation education provided: No Alcohol: Social Drugs: Denies - Home Medications Home Medications: Ambulatory Orders Medication Instructions Recorded RX: Albuterol/Ipratropium 2 inh PO BID 04/05/16 [Combivent Respimat] RX: Alprazolam 0.25 mg PO BID PRN 04/05/16 RX: Cholecalciferol (Vitamin D3) 50,000 unit PO QWK 04/05/16 [Vitamin D3] RX: Losartan Potassium 25 mg PO DAILY 04/05/16 RX: Omeprazole 20 mg PO DAILY 04/05/16 RX: Aspirin [Ecotrin] 81 mg PO DAILY #30 tablet.dr 01/20/17 RX: Fluticasone Nasal [Flonase] 1 spry INH DAILY PRN 08/29/17 RX: Atorvastatin [Lipitor] 10 mg PO HS #30 tab 03/06/18 RX: Calcium Carbonate/Vitamin D3 1 tab PO BID #60 tablet 03/06/18 [[place] 500-Vit D3 200 Tablet] RX: Ciprofloxacin HCl [Cipro] 500 mg PO Q12 #20 tablet 03/06/18 RX: Fluticasone/Vilanterol [Breo 1 puff INH DAILY #1 blst.w.dev 03/06/18 Ellipta 100-25 Mcg INH] RX: Levothyroxine [Synthroid] 150 mcg PO DAILY #30 tab 03/06/18 RX: Mesalamine [Apriso] 0.375 gm PO DAILY #30 cap.er.24h 03/06/18 RX: amLODIPine [Norvasc] 10 mg PO DAILY #30 tab 03/06/18 metroNIDAZOLE [Flagyl] 500 mg PO Q8 #30 tab 03/06/18 Acetaminophen [Acetaminophen 8 650 mg PO Q8 PRN #21 tablet.er 10/13/18 Hour] Albuterol Sulfate [Ventolin Hfa] 1 puff IH Q4 PRN #1 unit 10/13/18 Benzonatate [Tessalon Perles] 100 mg PO Q8 PRN #21 sgl 10/13/18 Oseltamivir Phosphate [Tamiflu] 75 mg PO BID #10 capsule 10/13/18 RX: Azithromycin [Z-Art] 250 mg PO DAILY #6 tab 10/13/18 RX: Ibuprofen [Motrin Tab] 800 mg PO Q8 PRN #21 tab 10/13/18 - Allergies Allergies/Adverse Reactions: Allergies Allergy/AdvReac Type Severity Reaction Status Date / Time No Known Allergies Allergy Verified 10/13/18 16:06 Review of Systems ROS Statement: Except As Marked, All Systems Reviewed And Found Negative Constitutional: Positive for: Fever (tmax 100.8), Other (bodyaches) Eyes: Negative for: Vision Change ENT: Positive for: Throat Pain Cardiovascular: Negative for: Chest Pain Respiratory: Negative for: Cough, Shortness of Breath Gastrointestinal: Positive for: Vomiting (2 episodes non-bilious non bloody). Negative for: Abdominal Pain, Diarrhea Genitourinary Female: Negative for: Dysuria, Frequency, Hematuria Skin: Negative for: Rash Neurological: Positive for: Headache (global, described as throbbing), Dizziness. Negative for: Weakness, Numbness, Other (photophobia) Physical Exam - Reviewed Nursing Documentation Reviewed: Yes Vital Signs Reviewed: Yes - Physical Exam Comments: GENERAL APPEARANCE: Patient is awake, alert, oriented x 3; no acute distress. SKIN: Warm, dry; (-) cyanosis. EYES: (-) conjunctival pallor, (-) scleral icterus. ENMT: Mucous membranes moist. Pharynx: clear, uvula midline (+) faint pharyngeal erythema (-) exudate. TM: non-bulging, non-erythematous. NECK: Supple, FROM (-) tenderness, (-) stiffness, (-) lymphadenopathy. CHEST AND RESPIRATORY: (-) rales, (+) scattered, faint rhonchi, (-) wheezes; breath sounds equal bilaterally. Respirations even and nonlabored. HEART AND CARDIOVASCULAR: (-) irregularity ABDOMEN AND GI: Soft (-) distention. Bowel sounds active x4; (-)tenderness (-) guarding, (-) rebound, (-) palpable masses, (-) CVA tenderness. EXTREMITIES: (-) deformity, (-) edema, (+) distal pulses. NEURO AND PSYCH: Mental status as above; (-) focal findings. Gait: steady. Speech: clear. (-) facial asymmetry. collar stay fuser tender II-XII: grossly intact. Cerebellar tests intact. EOMI and painless. Pupils equal and reactive. Medical Decision Making Medical Decision Makin:05 Clinical impression: 52 year old female with bodyaches, throat pain, cough, probable influenza Initial plan: * CMP * CBC with diff * blood culture * throat culture * influenza a b * rapid strep * antivert 25 mg PO * IV NS 1,000 ml IV 1,000 mls/hr * tylenol 325 mg tab 650 mg PO * zofran inj 4 mg IVP * reevaluation 2054 Repeat HR: 73 Influenza: negative Rapid Strep: negative CBC with significant leukocytosis and neutrophil shift. CMP grossly unremarkable. CXR 2 views ordered. 2134 CXR reviewed (+) perihilar thickening Azithromycin 500mg PO ordered for bacterial respiratory infection in light of PE/CXR/leukocytosis. Tamiflu 75mg PO ordered in light of high clinical suspicion of influenza. Patient requesting additional medication for dizziness. Reglan 10mg IVP and additional 1L NS ordered. EKG ordered. 2214 EKG: SR @ 77bpm, QTc 463 (+) LAD; compared to EKG 10/2017 by ED MD Downs and grossly unchanged. 2339 On re-evaluation, patient reports improvement of symptoms. On exam, patient remains AAOx3, in no acute distress. Lungs clear to auscultation, cardiac RRR, abdomen soft, non-tender, repeat neuro exam shows no focal findings. Vitals stable. Lab/Diagnostic results d/w the patient in great detail. Diagnosis of influenza, bacterial respiratory infection d/w the patient. Based on history, exam and diagnostic results, plan will be for outpatient follow up with PMD. Patient instructed to follow-up with pmd / referral provided / the clinic in 1- 2 days without fail. Advised to take medication as prescribed. Return to the emergency room at any time for any new or worsening symptoms. Patient states she fully agrees with and understands discharge instructions. States that she agrees with the plan and disposition. Verbalized and repeated discharge instructions and plan. I have given the patient opportunity to ask any additional questions. Scribe Attestation: Documented Toi Cedillo, acting as a scribe for Michelle Soriano Provider Scribe Attestation: All medical record entries made by the Scribe were at my direction and personally dictated by me. I have reviewed the chart and agree that the record accurately reflects my personal performance of the history, physical exam, medical decision making, and the department course for this patient. I have also personally directed, reviewed, and agree with the discharge instructions and disposition. - Laboratory Results Result Diagrams: 10/13/18 19:31 10/13/18 19:50 - ECG O2 Sat by Pulse Oximetry: 98 (RA) Pulse Ox Interpretation: Normal Disposition - Clinical Impression Clinical Impression: Influenza, Fever, Bacterial respiratory infection, Headache, Dizziness, Cough - Patient ED Disposition Is Patient to be Admitted: No Counseled Patient/Family Regarding: Studies Performed, Diagnosis, Need For Followup, Rx Given - Disposition Referrals: Reinaldo Rodas MD [Family Provider] - Disposition: Routine/Home Disposition Time: 23:40 Condition: STABLE Additional Instructions: The emergency medical care you received today was directed at your acute symptoms. If you were prescribed any medication, please fill it and take as directed. It may take several days for your symptoms to resolve. Return to the Emergency Department if your symptoms worsen, do not improve, or if you have any other problems. Please contact your doctor in 2 days for re-evaluation and follow up / or call one of the physicians/clinics you have been referred to that are listed on the Patient Visit Information form that is included in your discharge packet. Bring any paperwork you were given at discharge with you along with any medications you are taking to your follow up visit. Our treatment cannot replace ongoing medical care by a primary care provider (PCP) outside of the emergency department. Prescriptions: Acetaminophen [Acetaminophen 8 Hour] 650 mg PO Q8 PRN #21 tablet.er PRN Reason: fever, headache Albuterol Sulfate [Ventolin Hfa] 1 puff IH Q4 PRN #1 unit PRN Reason: Shortness Of Breath RX: Azithromycin [Z-Art] 250 mg PO DAILY #6 tab Benzonatate [Tessalon Perles] 100 mg PO Q8 PRN #21 sgl PRN Reason: Cough RX: Ibuprofen [Motrin Tab] 800 mg PO Q8 PRN #21 tab PRN Reason: fever, pain Oseltamivir Phosphate [Tamiflu] 75 mg PO BID #10 capsule Instructions: Flu, Headache, Adult, Bacterial Upper Respiratory Infection, Adult, Cough, Adult (DC), Dizziness, Nonvertigo, (DC), Fever, Adult (DC) Forms: [employer] (Iraqi) Print Language: GREEK - POA Present On Arrival: None Results - Lab Results Lab Results: 10/13/18 10/13/18 10/13/18 19:50 19:31 19:10 WBC 22.2 H D RBC 5.31 H Hgb 15.2 Hct 47.3 H MCV 89.1 D MCH 28.6 MCHC 32.1 L RDW 14.6 H Plt Count 223 D MPV 8.8 Neut % (Auto) 88.0 H Lymph % (Auto) 7.1 L [place] % (Auto) 4.3 Eos % (Auto) 0.0 Baso % (Auto) 0.6 Neut # (Auto) 19.6 H Lymph # (Auto) 1.6 [place] # (Auto) 1.0 H Eos # (Auto) 0.0 Baso # (Auto) 0.1 Neutrophils % (Manual) 85 H Band Neutrophils % 2 Lymphocytes % (Manual) 8 L Reactive Lymphs % 1 H Monocytes % (Manual) 4 Platelet Estimate Normal RBC Morphology Normal Sodium 136 Potassium 3.8 Chloride 97 L Carbon Dioxide 24 Anion Gap 19 BUN 17 Creatinine 1.6 H Est GFR ( Amer) 41 Est GFR (Non-Af Amer) 34 Random Glucose 131 H Calcium 9.9 Total Bilirubin 1.2 AST 42 H D ALT 40 Alkaline Phosphatase 83 Total Protein 8.6 H Albumin 4.8 Globulin 3.8 Albumin/Globulin Ratio 1.3 Influenza Typ A,B (EIA) Grp A Beta Strep Ag Negative 10/13/18 19:10 WBC RBC Hgb Hct MCV MCH MCHC RDW Plt Count MPV Neut % (Auto) Lymph % (Auto) [place] % (Auto) Eos % (Auto) Baso % (Auto) Neut # (Auto) Lymph # (Auto) [place] # (Auto) Eos # (Auto) Baso # (Auto) Neutrophils % (Manual) Band Neutrophils % Lymphocytes % (Manual) Reactive Lymphs % Monocytes % (Manual) Platelet Estimate RBC Morphology Sodium Potassium Chloride Carbon Dioxide Anion Gap BUN Creatinine Est GFR ( Amer) Est GFR (Non-Af Amer) Random Glucose Calcium Total Bilirubin AST ALT Alkaline Phosphatase Total Protein Albumin Globulin Albumin/Globulin Ratio Influenza Typ A,B (EIA) Negative for flu a/b Grp A Beta Strep Ag
[2018-10-13 19:53] LABS: BASO # 0.1 K/uL (0.0-0.2); BASO % 0.6 % (0.0-2.0); HEMOGLOBIN 15.2 g/dL (12.0-16.0); LYMPH # 1.6 K/uL (1.0-4.3); LYMPH % 7.1 % (20.0-40.0); MEAN CELL VOLUME 89.1 fl (81.0-99.0); MEAN CORPUSCULAR HEMOGLOBIN 28.6 pg (27.0-31.0); MEAN CORPUSCULAR HGB CONC 32.1 g/dL (33.0-37.0); MEAN PLATELET VOLUME 8.8 fl (7.2-11.7); MONO % 4.3 % (0.0-10.0); NEUT # 19.6 K/uL (1.8-7.0); PLATELET COUNT 223 K/uL (130-400); RBC 5.31 Mil/uL (3.80-5.20); RED CELL DISTRIBUTION WIDTH 14.6 % (11.5-14.5); WHITE BLOOD COUNT 22.2 K/uL (4.8-10.8)
[2018-10-13 20:14] LABS: ALB/GLOB RATIO 1.3 (1.0-2.1); ALBUMIN 4.8 g/dL (3.5-5.0); CALCIUM 9.9 mg/dL (8.4-10.2)
[2018-10-13 20:59] VITALS: RESP 18
[2018-10-13 21:12] LABS: BANDS 2 % (0-2); LYMPHOCYTE 8 % (20-50); MONOCYTE 4 % (0-10); NEUTROPHIL 85 % (42-75); PLATELET ESTIMATE NORMAL (NORMAL); REACTIVE LYMPHOCYTES 1 % (0-0); TOTAL CELLS COUNTED 100
[2018-10-13 23:40] VITALS: BP 116/73; PULSE 71; TEMP 98.3
--- NOTE | 2018-10-14 07:52 | RAD ---
Date of service: 10/13/2018 HISTORY: cough, tactile fever COMPARISON: No prior. TECHNIQUE: Chest PA and lateral FINDINGS: LUNGS: No active pulmonary disease. PLEURA: No significant pleural effusion identified. No pneumothorax apparent. CARDIOVASCULAR: No aortic atherosclerotic calcification present. Normal cardiac size. No pulmonary vascular congestion. OSSEOUS STRUCTURES: No significant abnormalities. VISUALIZED UPPER ABDOMEN: Normal. OTHER FINDINGS: None. IMPRESSION: No active disease.
[2018-10-14 18:14] VITALS: O2SAT 98
--- NOTE | 2018-10-14 22:14 | CARD ---
APPROVED REPORT Date of service: 10/13/2018 EKG Measurement Heart [id number] <Conclusion> Sinus rhythm with fusion complexes Left axis deviation Inferior infarct, age undetermined ST & T wave abnormality, consider anterolateral ischemia Abnormal ECG
== END 2018-10-13 23:41 | disposition home or self-care (01) ==
LOC: H.ER 15:33
DX: J11.1 Influenza due to unidentified influenza virus with other respiratory manifestations (principal); R50.9 Fever, unspecified; J98.8 Other specified respiratory disorders; R51 Headache; R42 Dizziness and giddiness; R05 Cough; I10 Essential (primary) hypertension; J44.9 Chronic obstructive pulmonary disease, unspecified; Z79.899 Other long term (current) drug therapy; E78.00 Pure hypercholesterolemia, unspecified
CPT/HCPCS: 71046; 80053; 85025; 87040; 87070; 87430; 87804; 93005; 96361; 96374; 96375; 99284; J2405; J2765; J7040

== ENCOUNTER 2019-01-02 12:53 | Emergency (ER) | payer OTHER ==
[2019-01-02 12:53] VITALS: BMI 30.5
[2019-01-02 12:58] VITALS: RESP 16
[2019-01-02] MEDS ORDERED: Sodium Chloride 0.9% 1,000 ML IV STA (13:36)
[2019-01-02] MEDS ORDERED: Atropine-Diphenoxylate 0.025-2.5 mg Tab PO ONE (13:36)
--- NOTE | 2019-01-02 13:40 | ED PDOC ---
HPI:Nausea, Vomiting, Diarrhea Time Seen by Provider: 01/02/19 13:31 Chief Complaint (Nursing): Dizziness/Lightheaded Chief Complaint (Provider): Dizziness History Per: Patient History/Exam Limitations: no limitations Onset/Duration Of Symptoms: Hrs Current Symptoms Are (Timing): Still Present Additional History Per: Patient Additional Complaint(s): 53yo female with history of hypertension, high cholesterol, comes to ER reporting dizziness since this morning. Also reports diarrhea, nausea, but deneis any vomiting. No fever, blood in diarrhea or abdominal pain. No additional complaints. PMD: Reinaldo Rodas Past Medical History Reviewed: Historical Data, Nursing Documentation, Vital Signs Vital Signs: Last Vital Signs Temp 98.6 F 01/02/19 13:16 Pulse 78 01/02/19 13:16 Resp 16 01/02/19 13:16 BP 124/84 01/02/19 13:16 Pulse Ox 99 01/02/19 13:16 - Medical History PMH: Anxiety, Asthma, Bronchitis, Colonic Polyps, COPD (USES MAC), Gastritis, HTN, Hypercholesterolemia, Hyperthyroidism, Hypothyroidism, Sleep Apnea (USES MAC) Denies: Fractures, Chronic Kidney Disease, Seizures, TIA - Surgical History Surgical History: Appendectomy, Cholecystectomy, Endoscopy, Tonsillectomy, C- Section - Family History Family History: States: Unknown Family Hx - Immunization History Hx Tetanus Toxoid Vaccination: No Hx Influenza Vaccination: No Hx Pneumococcal Vaccination: No - Home Medications Home Medications: Ambulatory Orders Medication Instructions Recorded Albuterol/Ipratropium [Combivent 2 inh PO BID 04/05/16 Respimat] Alprazolam 0.25 mg PO BID PRN 04/05/16 Cholecalciferol (Vitamin D3) 50,000 unit PO QWK 04/05/16 [Vitamin D3] Losartan Potassium 25 mg PO DAILY 04/05/16 Omeprazole 20 mg PO DAILY 04/05/16 Aspirin [Ecotrin] 81 mg PO DAILY #30 tablet. 01/20/17 Fluticasone Nasal [Flonase] 1 spry INH DAILY PRN 08/29/17 Atorvastatin [Lipitor] 10 mg PO HS #30 tab 03/06/18 Calcium Carbonate/Vitamin D3 1 tab PO BID #60 tablet 03/06/18 [Oysco 500-Vit D3 200 Tablet] Ciprofloxacin HCl [Cipro] 500 mg PO Q12 #20 tablet 03/06/18 Fluticasone/Vilanterol [Breo 1 puff INH DAILY #1 blst.w.dev 03/06/18 Ellipta 100-25 Mcg INH] Levothyroxine [Synthroid] 150 mcg PO DAILY #30 tab 03/06/18 Mesalamine [Apriso] 0.375 gm PO DAILY #30 cap.er.24h 03/06/18 amLODIPine [Norvasc] 10 mg PO DAILY #30 tab 03/06/18 metroNIDAZOLE [Flagyl] 500 mg PO Q8 #30 tab 03/06/18 Acetaminophen [Acetaminophen 8 650 mg PO Q8 PRN #21 tablet.er 10/13/18 Hour] Albuterol Sulfate [Ventolin Hfa] 1 puff IH Q4 PRN #1 unit 10/13/18 Azithromycin [Z-Art] 250 mg PO DAILY #6 tab 10/13/18 Benzonatate [Tessalon Perles] 100 mg PO Q8 PRN #21 sgl 10/13/18 Ibuprofen [Motrin Tab] 800 mg PO Q8 PRN #21 tab 10/13/18 Oseltamivir Phosphate [Tamiflu] 75 mg PO BID #10 capsule 10/13/18 Atropine/Diphenoxylate [Lonox 1 tab PO Q8 #10 tab 01/02/19 0.025 MG-2.5 MG] - Allergies Allergies/Adverse Reactions: Allergies Allergy/AdvReac Type Severity Reaction Status Date / Time No Known Allergies Allergy Verified 10/13/18 16:06 Review of Systems ROS Statement: Except As Marked, All Systems Reviewed And Found Negative Constitutional: Negative for: Fever Gastrointestinal: Positive for: Nausea, Diarrhea. Negative for: Vomiting, Abdominal Pain, Hematochezia Neurological: Positive for: Dizziness. Negative for: Headache Physical Exam - Reviewed Nursing Documentation Reviewed: Yes Vital Signs Reviewed: Yes - Physical Exam Appears: Positive for: Non-toxic, No Acute Distress Head Exam: Positive for: ATRAUMATIC, NORMAL INSPECTION, NORMOCEPHALIC Skin: Positive for: Normal Color, Warm, DRY Eye Exam: Positive for: EOMI, Normal appearance, PERRL ENT: Positive for: Other (dry mucus membranes) Neck: Positive for: Normal, Painless ROM Cardiovascular/Chest: Positive for: Regular Rate, Rhythm. Negative for: Tachycardia Respiratory: Positive for: Normal Breath Sounds. Negative for: Respiratory Distress Gastrointestinal/Abdominal: Positive for: Normal Exam, Soft. Negative for: Tenderness, Guarding, Rebound Back: Positive for: Normal Inspection Extremity: Positive for: Normal ROM Neurological/Psych: Positive for: Awake, Alert, Normal Tone - Laboratory Results Result Diagrams: 01/02/19 14:05 01/02/19 14:05 - ECG O2 Sat by Pulse Oximetry: 99 (RA) Pulse Ox Interpretation: Normal - Progress Re-evaluation Time: 15:31 Condition: Improved (No diarrhea, tolearting PO.) Medical Decision Making Medical Decision Makinyo with dizziness, nausea, diarrhea Plan: -- Labs -- Fluids -- Tylenol 650mg PO -- Lomotil 2tab Po Scribe Attestation: Documented by Yuliet Falcon, acting as a scribe for Ladarius Gill MD Provider Scribe Attestation: All medical record entries made by the Scribe were at my direction and personally dictated by me. I have reviewed the chart and agree that the record accurately reflects my personal performance of the history, physical exam, medical decision making, and the department course for this patient. I have also personally directed, reviewed, and agree with the discharge instructions and disposition. Disposition - Clinical Impression Clinical Impression: Gastroenteritis - Patient ED Disposition Is Patient to be Admitted: No - Disposition Referrals: Reinaldo Rodas MD [Staff Provider] - Disposition: Routine/Home Disposition Time: 15:32 Condition: FAIR Prescriptions: Atropine/Diphenoxylate [Lonox 0.025 MG-2.5 MG] 1 tab PO Q8 #10 tab Instructions: Gastroenteritis (ED) Forms: [employer] (Khmer)
[2019-01-02 14:45] LABS: BASO % 0.2 % (0.0-2.0); EOS # 0.2 K/uL (0.0-0.7); EOS % 1.4 % (0.0-4.0); HEMOGLOBIN 15.4 g/dL (12.0-16.0); LYMPH # 1.8 K/uL (1.0-4.3); LYMPH % 15.7 % (20.0-40.0); MEAN CELL VOLUME 86.4 fl (81.0-99.0); MEAN CORPUSCULAR HEMOGLOBIN 28.6 pg (27.0-31.0); MEAN CORPUSCULAR HGB CONC 33.1 g/dL (33.0-37.0); MEAN PLATELET VOLUME 9.2 fl (7.2-11.7); MONO # 0.3 K/uL (0.0-0.8); MONO % 2.7 % (0.0-10.0); NEUT # 9.1 K/uL (1.8-7.0); NRBC % 0.1 % (0.0-0.0); RBC 5.38 Mil/uL (3.80-5.20); RED CELL DISTRIBUTION WIDTH 14.1 % (11.5-14.5); WHITE BLOOD COUNT 11.3 K/uL (4.8-10.8)
[2019-01-02 14:58] LABS: ALB/GLOB RATIO 1.3 (1.0-2.1); ALBUMIN 5.1 g/dL (3.5-5.0); ALT/SGPT 38 U/L (9-52); AST/SGOT 28 U/L (14-36); BLOOD UREA NITROGEN 16 mg/dl (7-17); CALCIUM 10.1 mg/dL (8.4-10.2); GFR NON-AFRICAN AMERICAN > 60
--- NOTE | 2019-01-02 16:49 | ED PDOC ---
- Laboratory Results Result Diagrams: 01/02/19 14:05 01/02/19 14:05 Lab Results: Total Bilirubin 1.1 mg/dl (0.2-1.3) 01/02/19 14:05 AST 28 U/L (14-36) 01/02/19 14:05 ALT 38 U/L (9-52) 01/02/19 14:05 Alkaline Phosphatase 75 U/L (38-126) 01/02/19 14:05 Total Protein 9.1 G/DL (6.3-8.2) H 01/02/19 14:05 Albumin 5.1 g/dL (3.5-5.0) H 01/02/19 14:05 Globulin 4.0 gm/dL (2.2-3.9) H 01/02/19 14:05 Albumin/Globulin Ratio 1.3 (1.0-2.1) 01/02/19 14:05 - ECG O2 Sat by Pulse Oximetry: 99 (RA) Pulse Ox Interpretation: Normal Medical Decision Making Medical Decision Makin Patient signed out to me by Dr. Gill pending CT, reassessment. Scribe Attestation: Documented by Yuliet Falcon, acting as a scribe for Harleen Izaguirre MD Provider Scribe Attestation: All medical record entries made by the Scribe were at my direction and personally dictated by me. I have reviewed the chart and agree that the record accurately reflects my personal performance of the history, physical exam, medical decision making, and the department course for this patient. I have also personally directed, reviewed, and agree with the discharge instructions and disposition. Disposition - Clinical Impression Clinical Impression: Gastroenteritis - Disposition Referrals: Reinaldo Rodas MD [Staff Provider] - Condition: FAIR Prescriptions: Atropine/Diphenoxylate [Lonox 0.025 MG-2.5 MG] 1 tab PO Q8 #10 tab Instructions: Gastroenteritis (ED) Forms: [employer] (Yakut)
[2019-01-02 17:08] VITALS: BP 113/77; PULSE 66; TEMP 98.4
[2019-01-03 22:36] VITALS: O2SAT 100
== END 2019-01-02 16:40 | disposition home or self-care (01) ==
LOC: H.ER 12:53
DX: K52.9 Noninfective gastroenteritis and colitis, unspecified (principal); E03.9 Hypothyroidism, unspecified; E05.90 Thyrotoxicosis, unspecified without thyrotoxic crisis or storm; E78.00 Pure hypercholesterolemia, unspecified; I10 Essential (primary) hypertension
CPT/HCPCS: 80053; 81025; 85025; 96360; 96361; 99285; J7030